=== PATIENT | male | born 1970 | race Caucasian/White ===

== ENCOUNTER → 2016-05-09 | Outpatient (REF) | payer OTHER ==
[2016-05-09 12:23] LABS: ALBUMIN 3.7 GM/DL (3.2-5.2); ALBUMIN/GLOBULIN RATIO 1.32 (1.00-1.93); ALKALINE PHOSPHATASE 88 U/L (45-117); ALT/SGPT 40 U/L (12-78); ANION GAP 8 MEQ/L (8-16); AST/SGOT 21 U/L (15-37); BILIRUBIN,TOTAL 0.5 MG/DL (0.2-1.0); BLOOD UREA NITROGEN 23 MG/DL (7-18); CARBON DIOXIDE LEVEL 27 MEQ/L (21-32); CHLORIDE LEVEL 108 MEQ/L (98-107); CHOLESTEROL LEVEL 215 MG/DL (<200); CREATININE FOR GFR 0.82 MG/DL (0.70-1.30); FREE T4 1.15 NG/DL (0.76-1.46); GLOMERULAR FILTRATION RATE > 60.0 (>60); GLUCOSE, FASTING 103 MG/DL (70-105); POTASSIUM SERUM 4.5 MEQ/L (3.5-5.1); SODIUM LEVEL 143 MEQ/L (136-145); TOTAL PROTEIN 6.5 GM/DL (6.4-8.2); TRIGLYCERIDES LEVEL 111 MG/DL (<150)
== END ==
LOC: M LABDRAW1 11:27
PROVIDERS: ATTEND Family Medicine
DX: E03.9 Hypothyroidism, unspecified (principal); E78.2 Mixed hyperlipidemia

== ENCOUNTER → 2016-05-09 | Outpatient (REF) | payer OTHER ==
[2016-05-09 12:08] LABS: MEAN CORPUSCULAR HEMOGLOBIN 32.1 pg (27.0-33.0); MEAN CORPUSCULAR HGB CONC 35.2 g/dl (32.0-36.5); MEAN CORPUSCULAR VOLUME 91.1 fl (80.0-96.0); RED CELL DISTRIBUTION WIDTH 12.1 % (11.5-14.5); WHITE BLOOD COUNT 6.6 K/mm3 (4.0-10.0)
[2016-05-09 12:10] LABS: ALBUMIN 3.7 GM/DL (3.2-5.2); ALBUMIN/GLOBULIN RATIO 1.28 (1.00-1.93); ALKALINE PHOSPHATASE 84 U/L (45-117); ALT/SGPT 39 U/L (12-78); ANION GAP 9 MEQ/L (8-16); AST/SGOT 21 U/L (15-37); BILIRUBIN,DIRECT 0.1 MG/DL (0.0-0.2); BILIRUBIN,TOTAL 0.5 MG/DL (0.2-1.0); BLOOD UREA NITROGEN 22 MG/DL (7-18); CALCIUM LEVEL 8.8 MG/DL (8.5-10.1); CARBON DIOXIDE LEVEL 26 MEQ/L (21-32); CHLORIDE LEVEL 106 MEQ/L (98-107); CREATININE FOR GFR 0.78 MG/DL (0.70-1.30); GLOMERULAR FILTRATION RATE > 60.0 (>60); GLUCOSE, FASTING 98 MG/DL (70-105); PHOSPHORUS LEVEL 2.7 MG/DL (2.5-4.9); POTASSIUM SERUM 4.4 MEQ/L (3.5-5.1); SODIUM LEVEL 141 MEQ/L (136-145); TOTAL PROTEIN 6.6 GM/DL (6.4-8.2)
== END ==
LOC: M LABDRAW1 11:29
PROVIDERS: ATTEND Podiatrist Foot & Ankle Surgery
DX: Z51.81 Encounter for therapeutic drug level monitoring (principal); Z79.899 Other long term (current) drug therapy; B35.1 Tinea unguium

== ENCOUNTER 2016-05-25 12:51 | Day surgery (SDC) | payer OTHER ==
[~2016-05-25] VITALS: Ht 185.4 cm; Wt 97.5 kg
--- NOTE | 2016-05-25 14:33 | REP ---
Left elbow series: Four views. History: Injury. Findings: There is an intra-articular fracture of the olecranon process of the proximal ulna. There is up to 6 mm of diastasis at the fracture site on lateral radiograph. No other fracture is seen. There is associated soft-tissue swelling. There is coronoid process and olecranon process spurring. 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 Impression: Intra-articular fracture of the proximal ulna involving the base of the olecranon process. Signed by Nomi Lobo MD 05/25/2016 03:06 P
[2016-05-25] MEDS ORDERED: ONDANSETRON 4MG/2ML VIAL (J2405) As Ordered ONE ×2 (14:36→22:00)
[2016-05-25] MEDS ORDERED: MORPHINE 4 MG/ML 1ML SYRINGE As Ordered ONE (14:36)
--- NOTE | 2016-05-25 14:37 | REP ---
LEFT SHOULDER SERIES: Three views. HISTORY: Trauma. FINDINGS: Glenohumeral and acromioclavicular joints are normally aligned. Periarticular soft tissues are unremarkable. There is a granulomatous calcification in the left lung. IMPRESSION: No traumatic abnormality noted. Signed by Nomi Lobo MD 05/25/2016 03:07 P
[2016-05-25 14:46] LABS: BASO % 0.2 % (0.0-1.0); EOS # 0.1 K/mm3 (0.0-0.50); EOS % 0.8 % (0.0-3.0); LARGE UNSTAINED CELL # 0.1 K/mm3 (0.0-0.4); LARGE UNSTAINED CELL % 0.7 % (0.0-4.0); LYMPH # 0.8 K/mm3 (1.5-4.5); LYMPH % 5.5 % (24.0-44.0); MEAN CORPUSCULAR HEMOGLOBIN 30.8 pg (27.0-33.0); MEAN CORPUSCULAR HGB CONC 33.2 g/dl (32.0-36.5); MEAN CORPUSCULAR VOLUME 92.9 fl (80.0-96.0); MONO # 0.4 K/mm3 (0.0-0.8); MONO % 2.8 % (0.0-5.0); NEUTROPHILS # 12.3 K/mm3 (1.8-7.7); NEUTROPHILS % 89.9 % (36.0-66.0); PLATELET COUNT, AUTOMATED 182 k/mm3 (150-450); RED CELL DISTRIBUTION WIDTH 12.2 % (11.5-14.5); WHITE BLOOD COUNT 13.6 K/mm3 (4.0-10.0)
[2016-05-25] MEDS ORDERED: ROPIvacaine 0.5% 30 ML INJECTION (J2795) ONE (14:51)
[2016-05-25] MEDS ORDERED: dexameTHASONE 10 MG/1 ML VIAL PRES.FREE (J1100) ONE (14:51)
[2016-05-25 14:59] LABS: INR 0.97
[2016-05-25 15:07] LABS: ALBUMIN/GLOBULIN RATIO 1.43 (1.00-1.93); ALKALINE PHOSPHATASE 89 U/L (45-117); ALT/SGPT 40 U/L (12-78); ANION GAP 6 MEQ/L (8-16); AST/SGOT 21 U/L (15-37); BILIRUBIN,TOTAL 0.4 MG/DL (0.2-1.0); BLOOD UREA NITROGEN 27 MG/DL (7-18); CALCIUM LEVEL 9.2 MG/DL (8.5-10.1); CARBON DIOXIDE LEVEL 30 MEQ/L (21-32); CHLORIDE LEVEL 107 MEQ/L (98-107); CREATININE FOR GFR 1.08 MG/DL (0.70-1.30); GLOMERULAR FILTRATION RATE > 60.0 (>60); GLUCOSE, FASTING 80 MG/DL (70-105); POTASSIUM SERUM 4.2 MEQ/L (3.5-5.1); SODIUM LEVEL 143 MEQ/L (136-145); TOTAL PROTEIN 6.8 GM/DL (6.4-8.2)
[2016-05-25] MEDS ORDERED: FLUO40CA PO (15:15)
[2016-05-25] MEDS ORDERED: LYSI500C PO (15:15)
[2016-05-25] MEDS ORDERED: SYNT137T7 PO (15:15)
[2016-05-25] MEDS ORDERED: ZYLO300T4 PO (15:15)
[2016-05-25] MEDS ORDERED: DICL75TA PO (15:15)
[2016-05-25] MEDS ORDERED: ceFAZolin 1GM INJ (J0690) As Ordered ONE (15:17)
--- NOTE | 2016-05-25 16:46 | EDDOCDS ---
Nurse's Notes [facility] Name: Sergio Loza Age: 46 yrs Sex: Male : 1970 Arrival Date: 05/25/2016 Time: 12:51 Bed I7 / 29 Private MD: Marybel Guerrero A Diagnosis: Nondisplaced fracture of olecranon process with intraarticular extension of left ulna Presentation: 05/25 13:01 Presenting complaint: Patient states: Fell off ladder in garage and landed on left jo3 elbow. Adult Sepsis Screening: The patient does not have new or worsening altered mentation. Patient's respiratory rate is less than 22. Systolic blood pressure is greater than 100. Patient has a qSOFA score of 0- Negative Sepsis Screen. Suicide/Homicide risk assessment- the patient denies having any suicidal and/or homicidal ideations and does not present with any other emotional, behavioral or mental health complaints. Status: Patient is not a school services officer or dependent. Transition of care: patient was not received from another setting of care. 13:01 Acuity: ANATOLIY Level 4 jo3 13:01 Method Of Arrival: Walkin/Carried/Asstd jo3 Triage Assessment: 13:04 General: Appears in no apparent distress, comfortable, Behavior is appropriate for age, jo3 cooperative. Pain: Pain currently is 9 out of 10 on a pain scale. Pt Declines HIV testing. Neurological: Level of Consciousness is awake, alert, Oriented to person, place, time. Respiratory: Airway is patent Respiratory effort is even, unlabored. Historical: - Allergies: PENICILLINS; - Home Meds: 1. allopurinol 300 mg Oral tab 1 tab once daily 2. fluoxetine 40 mg Oral cap 1 cap once daily 3. Synthroid 137 mcg Oral tab 1 tab once daily 4. diclofenac sodium 75 mg oral TbEC 2 times per day - PMHx: gout; Depression; Anxiety; Hypothyroidism; - PSHx: Shoulder Arthroplasty. Right; Tonsillectomy; Hernia repair; - Social history: Smoking status: Patient states was never smoker of tobacco. No barriers to communication noted, The patient speaks fluent Israeli, Speaks appropriately for age. - Family history: Not pertinent. - : The pt / caregiver states he / she is not on anticoagulants. Home medication list is obtained from the patient. - Exposure Risk Screening:: None identified. Screenin:45 Screening information is obtained from the patient. Fall risk: No risks identified. mk4 Assistance ADL's: requires no assistance with activities of daily living. Abuse/DV Screen: The patient / caregiver reports he/she is: not in a situation that causes fear, pain or injury. Nutritional screening: No deficits noted. Advance Directives: Currently, there is no health care proxy. There is no active DNR order. There is no living will. There is no Power of Local Flatbed Driver. Advance directive information has not previously been placed in an [facility] medical record. Further advance directive information is declined. home support is adequate. Assessment: 13:45 General: Appears Behavior is cooperative. Pain: Location: left elbow. Respiratory: mk4 Airway is patent Respiratory effort is even, unlabored, Respiratory pattern is regular. 14:13 General: Appears uncomfortable. Pain: Location: left elbow. Musculoskeletal: mk4 Circulation, motion, and sensation intact Capillary refill < 3 seconds in left fingers. 14:57 General: Appears in no apparent distress, Behavior is cooperative, dr bruce in mk4 examining pt. 16:39 General: Appears in no apparent distress. Pain: Location: left elbow Pain currently is mk4 6 out of 10 on a pain scale. Respiratory: Airway is patent Respiratory effort is even, unlabored, Respiratory pattern is regular. Vital Signs: 12:53 BP 107 / 65 RA Sitting (auto/reg); Pulse 50; Resp 18; Temp 97.9; Pulse Ox 100% ; Weight jrd 97.52 kg (R); Height 6 ft. 1 in. (185.42 cm); Pain 8/10; 15:00 BP 122 / 78; Pulse 66; Resp 18; Temp 97.5(O); Pulse Ox 99% on R/A; mk4 16:35 BP 132 / 74; Pulse 67; Resp 20; Temp 99.0(TE); Pulse Ox 97% on R/A; Pain 6/10; jml1 12:53 Body Mass Index 28.37 (97.52 kg, 185.42 cm) [facility] Vitals: 12:53 Log In Time: May 25, 2016 at 12:40. d ED Course: 12:52 Patient visited by Robby Burr PCA. jrd 12:52 Marybel Guerrero is Private Physician. jrd 12:52 Patient moved to Waiting jrd 12:54 Patient visited by Robby Burr PCA. jrd 13:01 Patient moved to Pre RCE jrd 13:02 Triage Initiated jo3 13:05 Patient visited by Jackelyn Cavazos RN. jo3 13:19 Patient moved to Triage 1 jo3 13:22 Noah Davis PA is PHCP. btw 13:22 Danica Carey MD is Attending Physician. btw 13:22 Patient visited by Noah Davis PA. btw 13:45 Patient moved to I7 btw 13:45 The patient / caregiver is instructed regarding the plan of care and ED course. mk4 14:12 Patient visited by Noemí Ponce RN. mk4 14:35 CBC with Diff Sent. mk4 14:35 Pt & Aptt Sent. mk4 14:35 Complete Comphrensive Metabolic Sent. mk4 14:46 Patient visited by Noemí Ponce RN. mk4 14:48 Tommy Bruce is Hospitalizing Provider. btw 14:56 Elbow, Complete Returned. EDMS 14:56 Shoulder, Complete Returned. EDMS 15:24 Admission Orders was scanned into [employer] and attached to record. deg 15:46 Elbow, Complete Returned. EDMS 15:46 Shoulder, Complete Returned. EDMS 16:23 [facility] Payment Agreement was scanned into [employer] and attached to record. gjb 16:36 Patient visited by Sudarshan Arizmendi. jml1 16:40 Inserted saline lock: 18 gauge in right antecubital area. No procedures done that mk4 require assistance. Administered Medications: 14:46 Drug: NS 0.9% 1000 ml [sodium chloride 0.9 % intravenous solution] Route: IV; Rate: 150 mk4 mL/hr; Site: right antecubital; 14:47 Drug: morphine 4 mg [morphine 4 mg/mL intravenous cartridge (1 mL)] Route: IVP; Site: mk4 right antecubital; 15:00 Follow up: Response: Pain is decreased mk4 14:47 Drug: Ondansetron 4 mg Route: IVP; Site: right antecubital; mk4 Order Results: Lab Order: CBC with Diff; SPEC'M 05/25/16 14:35 Test: WHITE BLOOD COUNT; Value: 13.6; Range: 4.0-10.0; Abnormal: Above high normal; Units: K/mm3; Status: F Test: RED BLOOD COUNT; Value: 4.98; Range: 4.30-6.10; Units: M/mm3; Status: F Test: HEMOGLOBIN; Value: 15.3; Range: 14.0-18.0; Units: g/dl; Status: F Test: HEMATOCRIT; Value: 46.2; Range: 42.0-52.0; Units: %; Status: F Test: MEAN CORPUSCULAR VOLUME; Value: 92.9; Range: 80.0-96.0; Units: fl; Status: F Test: MEAN CORPUSCULAR HEMOGLOBIN; Value: 30.8; Range: 27.0-33.0; Units: pg; Status: F Test: MEAN CORPUSCULAR HGB CONC; Value: 33.2; Range: 32.0-36.5; Units: g/dl; Status: F Test: RED CELL DISTRIBUTION WIDTH; Value: 12.2; Range: 11.5-14.5; Units: %; Status: F Test: PLATELET COUNT, AUTOMATED; Value: 182; Range: 150-450; Units: k/mm3; Status: F Test: NEUTROPHILS %; Value: 89.9; Range: 36.0-66.0; Abnormal: Above high normal; Units: %; Status: F Test: LYMPH %; Value: 5.5; Range: 24.0-44.0; Abnormal: Below low normal; Units: %; Status: F Test: MONO %; Value: 2.8; Range: 0.0-5.0; Units: %; Status: F Test: EOS %; Value: 0.8; Range: 0.0-3.0; Units: %; Status: F Test: BASO %; Value: 0.2; Range: 0.0-1.0; Units: %; Status: F Test: LARGE UNSTAINED CELL %; Value: 0.7; Range: 0.0-4.0; Units: %; Status: F Test: NEUTROPHILS #; Value: 12.3; Range: 1.8-7.7; Abnormal: Above high normal; Units: K/mm3; Status: F Test: LYMPH #; Value: 0.8; Range: 1.5-4.5; Abnormal: Below low normal; Units: K/mm3; Status: F Test: MONO #; Value: 0.4; Range: 0.0-0.8; Units: K/mm3; Status: F Test: EOS #; Value: 0.1; Range: 0.0-0.50; Units: K/mm3; Status: F Test: BASO #; Value: 0.0; Range: 0.0-0.2; Units: K/mm3; Status: F Test: LARGE UNSTAINED CELL #; Value: 0.1; Range: 0.0-0.4; Units: K/mm3; Status: F Lab Order: Pt & Aptt; [facility]16 14:35 Test: PROTHROMBIN TIME; Value: 13.0; Range: 12.3-14.5; Units: SECONDS; Status: F Test: INR; Value: 0.97; Status: F Test: PARTIAL THROMBOPLASTIN TIME; Value: 23.0; Range: 26.6-37.1; Abnormal: Below low normal; Units: SECONDS; Status: F Test Note: ; THERAPUTIC HUMAN INR VALUES INDICATIONS NORMAL RANGES PROPHYLAXIS/TREATMENT OF: VENOUS THROMBOSIS 2.0-3.0 PULMONARY EMBOLISM 2.0-3.0 PREVENTION OF SYSTEMIC EMBOLISM FROM: TISSUE HEART VALVES 2.0-3.0 ACUTE MYOCARDIAL INFARCTION 2.0-3.0 VALVULAR HEART DISEASE 2.0-3.0 ATRIAL FIBRILLATION 2.0-3.0 MECHANICAL VALVES(HIGH RISK) 2.5-3.5 RECURRENT MYOCARDIAL INFARCTION 2.5-3.5 Lab Order: Complete Comphrensive Metabolic; 05/25/16 14:35 Test: GLUCOSE, FASTING; Value: 80; Range: 70-105; Units: MG/DL; Status: F Test: BLOOD UREA NITROGEN; Value: 27; Range: 7-18; Abnormal: Above high normal; Units: MG/DL; Status: F Test: CREATININE FOR GFR; Value: 1.08; Range: 0.70-1.30; Units: MG/DL; Status: F Test: GLOMERULAR FILTRATION RATE; Value: > 60.0; Range: >60; Status: F Test: SODIUM LEVEL; Value: 143; Range: 136-145; Units: MEQ/L; Status: F Test: POTASSIUM SERUM; Value: 4.2; Range: 3.5-5.1; Units: MEQ/L; Status: F Test: CHLORIDE LEVEL; Value: 107; Range: 98-107; Units: MEQ/L; Status: F Test: CARBON DIOXIDE LEVEL; Value: 30; Range: 21-32; Units: MEQ/L; Status: F Test: ANION GAP; Value: 6; Range: 8-16; Abnormal: Below low normal; Units: MEQ/L; Status: F Test: CALCIUM LEVEL; Value: 9.2; Range: 8.5-10.1; Units: MG/DL; Status: F Test: AST/SGOT; Value: 21; Range: 15-37; Units: U/L; Status: F Test: ALT/SGPT; Value: 40; Range: 12-78; Units: U/L; Status: F Test: ALKALINE PHOSPHATASE; Value: 89; Range: 45-117; Units: U/L; Status: F Test: BILIRUBIN,TOTAL; Value: 0.4; Range: 0.2-1.0; Units: MG/DL; Status: F Test: TOTAL PROTEIN; Value: 6.8; Range: 6.4-8.2; Units: GM/DL; Status: F Test: ALBUMIN; Value: 4.0; Range: 3.2-5.2; Units: GM/DL; Status: F Test: ALBUMIN/GLOBULIN RATIO; Value: 1.43; Range: 1.00-1.93; Status: F Test Note: ; Units are mL/min/1.73 m2 Chronic Kidney Disease Staging per NKF: Stage I & II GFR >=60 Normal to Mildly Decreased Stage III GFR 30-59 Moderately Decreased Stage IV GFR 15-29 Severely Decreased Stage V GFR <15 Very Little GFR Left ESRD GFR <15 on CLINICAL VETERINARIAN Radiology Order: Elbow, Complete Test: Elbow, Complete REASON FOR EXAMINATION: Trauma; Left elbow series: Four views.; ; History: Injury.; ; Findings: There is an intra-articular fracture of the olecranon process of the; proximal ulna. There is up to 6 mm of diastasis at the fracture site on lateral; radiograph. No other fracture is seen. There is associated soft-tissue; swelling. There is coronoid process and olecranon process spurring. 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 There is a granulomatous; calcification in the left lung.; ; IMPRESSION: No traumatic abnormality noted.; ; ; Signed by; Nomi Lobo MD 05/25/2016 03:07 P; Outcome: 14:48 Decision to Hospitalize by Provider. btw 16:39 Discharge Assessment: Patient awake, alert and oriented x 3. No cognitive and/or mk4 functional deficits noted. Patient verbalized understanding of disposition instructions. Discharge Assessment: patient administered narcotics - yes. Patient was admitted to the hospital or transferred to another facility. Admitted to OR accompanied by nurse, via stretcher, with chart. The following High Risk Discharge criteria are identified: None. Admitted. Condition: stable. No special radiology studies were completed. Property :Personal belongings accompany Pt. 16:45 Patient left the ED. [facility] Signatures: Dispatcher [employer] EDMS Kirti Thomas, Ager Tender Unit deg Ann Wright RN RN mcp Helmerci, JenniferRN RN Noah Kaiser PA PA btw Sudarshan Arizmendi Margaret, RN RN laurel4 Robby Burr, Leandra Villagran Corrections: (The following items were deleted from the chart) 14:15 14:13 General: Appears uncomfortable, cindy white [facility]
--- NOTE | 2016-05-25 16:46 | EDDOCDS ---
Physician Documentation [facility] Name: Sergio Loza Age: 46 yrs Sex: Male : 1970 Arrival Date: 05/25/2016 Time: 12:51 Bed I7 / 29 Private MD: Marybel Guerrero A Disposition: 05/25/16 14:48 Hospitalization ordered by Tommy Burce for Inpatient Admission. Preliminary diagnosis is Nondisplaced fracture of olecranon process with intraarticular extension of left ulna. - Bed requested for 5 Soni. - Status is Inpatient Admission. mcp - Condition is Stable. - Problem is new. - Symptoms are unchanged. Historical: - Allergies: PENICILLINS; - Home Meds: 1. allopurinol 300 mg Oral tab 1 tab once daily 2. fluoxetine 40 mg Oral cap 1 cap once daily 3. Synthroid 137 mcg Oral tab 1 tab once daily 4. diclofenac sodium 75 mg oral TbEC 2 times per day - PMHx: gout; Depression; Anxiety; Hypothyroidism; - PSHx: Shoulder Arthroplasty. Right; Tonsillectomy; Hernia repair; - Social history: Smoking status: Patient states was never smoker of tobacco. No barriers to communication noted, The patient speaks fluent Turkmen, Speaks appropriately for age. - Family history: Not pertinent. - : The pt / caregiver states he / she is not on anticoagulants. Home medication list is obtained from the patient. - Exposure Risk Screening:: None identified. Vital Signs: 05/25 12:53 BP 107 / 65 RA Sitting (auto/reg); Pulse 50; Resp 18; Temp 97.9; Pulse Ox 100% ; Weight jrd 97.52 kg / 214.99 lbs (R); Height 6 ft. 1 in. (185.42 cm); Pain 8/10; 15:00 BP 122 / 78; Pulse 66; Resp 18; Temp 97.5(O); Pulse Ox 99% on R/A; mk4 16:35 BP 132 / 74; Pulse 67; Resp 20; Temp 99.0(TE); Pulse Ox 97% on R/A; Pain 6/10; jml1 12:53 Body Mass Index 28.37 (97.52 kg, 185.42 cm) jrd MDM: 13:45 Elbow, Complete Ordered. EDMS 13:45 Shoulder, Complete Ordered. EDMS 14:25 IV Saline Lock ordered. btw 14:25 morphine 4 mg IVP every 30 minutes; Document pain score/vitals after each dose (Hold if btw SBP < 90mmHg) x2 ordered. 14:25 Ondansetron 4 mg IVP once ordered. btw 14:26 CBC with Diff Ordered. EDMS 14:26 Pt & Aptt Ordered. EDMS 14:26 Complete Comphrensive Metabolic Ordered. EDMS 14:26 NS 0.9% 1000 ml IV at 150 mL/hr continuous ordered. btw 14:48 CBC with Diff Reviewed. btw 14:49 BED REQUEST+ADM ordered. EDMS 15:16 Pt & Aptt Reviewed. btw 15:16 Complete Comphrensive Metabolic Reviewed. btw 15:16 Elbow, Complete Reviewed. btw 15:16 Shoulder, Complete Reviewed. btw 15:24 Admission Orders was scanned into [employer] and attached to record. deg 16:23 Financial registration complete. gjb 16:23 [facility] Payment Agreement was scanned into [employer] and attached to record. gjb Administered Medications: 14:46 Drug: NS 0.9% 1000 ml [sodium chloride 0.9 % intravenous solution] Route: IV; Rate: 150 mk4 mL/hr; Site: right antecubital; 14:47 Drug: morphine 4 mg [morphine 4 mg/mL intravenous cartridge (1 mL)] Route: IVP; Site: mk4 right antecubital; 15:00 Follow up: Response: Pain is decreased mk4 14:47 Drug: Ondansetron 4 mg Route: IVP; Site: right antecubital; mk4 Signatures: Dispatcher [employer] EDMS Kirti Thomas, Job Recruiter Unit deg Ann Wright RN Jackelyn Jung mcp, RN RN jo3 Wolfenden, Brandon, PA PA btw Noemí Ponce RN RN laurel4 Alen Castano RN Leandra Sanchez mts The chart was reviewed and I authenticate all verbal orders and agree with the evaluation and treatment provided.Attachments: 15:24 Admission Orders deg 16:23 [facility] Payment Agreement gjb MTDD
[2016-05-25] MEDS ORDERED: ceFAZolin 2 GM/D5W 50 ML IV BAG (J0690) As Ordered ONE (16:58)
[2016-05-25] MEDS ORDERED: ceFAZolin 1GM INJ (J0690) IR ONE (18:55)
--- NOTE | 2016-05-25 20:04 | HPE ---
DATE OF ADMISSION: 05/25/2016 REASON FOR ADMISSION: Left olecranon fracture. 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 He was on about the third rung of a stepladder, fell backwards, landed on his left elbow. Complains of soreness predominantly of the left elbow. Was seen by the emergency room staff and x-rays of the shoulder and elbow were done, demonstrating olecranon fracture on the left. I was called in to see him for this injury. He does not complain of any other injury other than pain and soreness of the left elbow. No associated numbness or tingling. With this, no loss of consciousness, neck pain or head pain. He was ambulatory. PAST MEDICAL HISTORY: His past medical history is well known to me, orthopedically from multiple surgeries on his right shoulder. Otherwise, he has a history of hypothyroidism and gout and depression. MEDICATIONS: - allopurinol - fluoxetine - Synthroid - diclofenac ALLERGIES: PENICILLIN, but he can take Keflex. SOCIAL HISTORY: He does not smoke. He does not drink alcohol excessively. PAST SURGICAL HISTORY 1. Right shoulder rotator cuff repair times two. 2. Right tonsillectomy. 3. Hernia repair. SOCIAL HISTORY: He is and here with his . REVIEW OF SYSTEMS: Health survey is otherwise unremarkable. PHYSICAL EXAMINATION: Alert and oriented male. He is lying on a stretcher with a sling on his left upper extremity. His blood pressure was 107/65, pulse 50, respirations 18, temperature 97.9, oxygen saturation is 100% on room air. He is 6 feet 1 inch and weighs 97.5 kg, giving him a Body Mass Index (BMI) of 28.37. HEENT: Examination is benign. Normocephalic, atraumatic. Extraocular muscles grossly normal. EXTREMITIES: Left shoulder had some mild diffuse soreness, but his left elbow some tender and swelling over the posterior aspect of the proximal ulna with some bruising of the skin but there is no bleeding. Distally, he can flex and extend his left hand, all of his fingers and extend them all normally with normal motor strength and normal sensation to light touch. Good capillary refill. Palpable radial pulse. LUNGS: Clear to auscultation. HEART: Regular. I do not detect a murmur. EXTREMITIES: He has no other traumatic findings seen of his lower extremities or his opposite right upper extremity. White count was 13.6 with hematocrit of 46.2 and platelets of 182. PT 13, INR 0.97. Radiograph of the left shoulder showed no acute fractures. Left elbow showed an intraarticular fairly distal olecranon fracture that extends into the joint some moderate displacement. 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 I talked about and showed him the x-ray on a printout sheet. We discussed the intraarticular nature of the fracture and there is some displacement at the joint. I would recommend for him to get this reduced as anatomically as possible and that will require, unfortunately, surgery, and try to get an open reduction and plated. I do not think that this is a tension band type fracture, but plating would probably be better, but there is a risk of doing surgery. There is a risk of infection, damage to nerves and blood vessels, anesthetic complications amongst others, and he understands that there is a risk but would like to proceed and I think it reasonable as well. I called anesthesia. He had an orange around 11:00 or 11:30. They will not let us do surgery until sometime after 5:00 o'clock this afternoon, and so we will try to get him done around that time.
[2016-05-25] MEDS ORDERED: ePHEDrine SULFATE 25 MG/5 ML(5MG/ML) SYRINGE As Ordered ONE (20:37)
[2016-05-25] MEDS ORDERED: fentaNYL 250 MCG/5 ML INJECTION (J3010) As Ordered ONE (20:37)
[2016-05-25] MEDS ORDERED: dexameTHASONE 4 MG/ML 1ML VIAL (J1100) As Ordered ONE (20:37)
[2016-05-25] MEDS ORDERED: GLYCOPYRROLATE INJ 0.2 MG/ML 2 ML VIAL As Ordered ONE (20:37)
[2016-05-25] MEDS ORDERED: HYDROmorphone HCL 2 MG/ML 1ML VIAL (J1170) As Ordered ONE (20:37)
[2016-05-25] MEDS ORDERED: ONDANSETRON 4MG/2ML VIAL (J2405) IV PRN (21:15)
[2016-05-25] MEDS ORDERED: NORCO, ANEXSIA 5/325MG TABLET (HYDROcodone/ACETAMINOPHEN) PO PRN (21:15)
[2016-05-25] MEDS ORDERED: LR 1,000 ML IV SCH (21:15)
[2016-05-25] MEDS ORDERED: fentaNYL 100 MCG/2 ML INJECTION (J3010) IV PRN (21:15)
[2016-05-25] MEDS ORDERED: MORPHINE 4 MG/ML 1ML SYRINGE IV PRN (21:15)
[2016-05-25] MEDS ORDERED: MIDAZOLAM INJ 2 MG/2 ML VIAL (J2250) As Ordered ONE (22:00)
[2016-05-25] MEDS: NORCO, ANEXSIA 5/325MG TABLET (HYDROcodone/ACETAMINOPHEN) PO PRN (22:46)
[2016-05-25] MEDS: LR 1,000 ML IV SCH (22:46)
[2016-05-25 23:30] VITALS: BP 125/73
[2016-05-26 00:30] VITALS: BP 119/71
[2016-05-26 01:30] VITALS: BP 129/74
[2016-05-26 02:30] VITALS: BP 122/71
--- NOTE | 2016-05-26 05:00 | REP ---
Clinical: Comminuted fracture to the elbow. Technique: Intraoperative fluoroscopic imaging. Findings: Two intraoperative fluoroscopic images demonstrate the patient to be status post open reduction and fixation for comminuted fractures involving the proximal ulna. Satisfactory alignment and reduction. Total fluoroscopic time 40 seconds. Impression: Status post open reduction and fixation for comminuted proximal ulnar fracture. Signed by Gurpreet Mckeon MD 05/26/2016 04:52 A
[2016-05-26] MEDS: NORCO, ANEXSIA 5/325MG TABLET (HYDROcodone/ACETAMINOPHEN) PO PRN ×2 (05:56→10:03)
[2016-05-26 06:00] VITALS: BP 140/76
[2016-05-26] MEDS ORDERED: LEVOTHYROXINE 0.137 MG TAB (137MCG) PO SCH (06:00)
--- NOTE | 2016-05-26 06:33 | RO ---
DATE OF PROCEDURE: 05/25/2016 PREPROCEDURE DIAGNOSIS: Left olecranon fracture. POSTPROCEDURE DIAGNOSIS: Left olecranon fracture. PROCEDURE: Open reduction internal fixation with 3.5 LCP Synthes locking olecranon plate with interfragmentary screw with a cannulated 4.5 mm lag screw. SURGEON: Dr. Soledad Bruce STEAM PLANT OPERATOR: ANESTHESIA: General endotracheal tube anesthesia. COMPLICATIONS: None. ESTIMATED BLOOD LOSS: 100 mL. PROCEDURE: Antibiotics were given intravenously preoperatively and then a successful general endotracheal tube anesthetic was established. He was then placed in the lateral decubitus position on a grant bag and his left arm draped over a metal bolster. Tourniquet was placed on the left upper arm, not inflated. Then prior to prepping and draping, fluoroscopic imaging confirmed that we could get good imaging and then his left upper extremity was prepped and draped in the usual sterile fashion and then after appropriate time out, his arm was elevated and the tourniquet was inflated for 45 minutes. A longitudinal incision was made on the dorsal surface of the left elbow. Bovie cautery used to coagulate down through the soft tissues to the deep tissues down to the ulna bone exposing the underlying fascia site. It was actually quite comminuted. The major fracture fragment was easily identifiable but the proximal fracture fragment also had longitudinal splitting making it somewhat comminuted. Thus, I was able to subperiosteally dissect around the main fracture line to make sure that we could get good anatomic reduction after irrigating out this area. It appeared to be we were anatomically aligned on the dorsal and medial and lateral surfaces. I did not take the fracture apart to do so. I then used a 4 hole, 3.5 LCP olecranon locking plate from the Synthes elbow tray and applied it to the bone and then contoured it proximally with a small bend. I had to eliminate the proximal tab. I provisionally fixed it with two K-wires, one proximally and one distally and under fluoroscopic imaging showed that we could get adequate positioning of the plate but I wanted to get a lag screw across the main fracture fragment first to reduce the fracture as best as possible. Thus the one K-wire proximally used to hold the plate actually was well aligned in the directed of the needed lag screw but there was no holes available through the plate in order to lag through the plate. Thus I had to go just off to the medial edge of the plate and the 4.0 screws were not long enough so I used the 4.5 cannulated screw set and I tried to stay parallel to the previously placed K-wire that was holding the plate. I passed a threaded guide pin across the fracture site and then confirmed positioning on the AP and lateral fluoroscopic imaging in multiple sequences until I got the pin into good position and good length. I then counter sank the near cortex, then used a 56 mm proximally threaded 4.5 cannulated screw to go across that K-wire across the fracture site with excellent firm bite of the screw. I tightened it as much as I possibly could and it did bring the fracture together as best as possible. There was still a bit of a gap right at the joint surface but I felt it was only about 1-2 mm, there was no step off. I felt that there was an acceptable reduction. At this point then, I contoured the plate appropriately. There was a large amount of tophus material right in the olecranon bursa at the tip of the olecranon which I excised with a rongeur at the triceps insertion point and I did split the triceps a small amount in order to get the plate to rest down very close to the bone so the plate would fit right up against the ulna going distally. Then I secured the plate to the bone through the longitudinal hole with a 3.5 cortical screw more distally and then more proximally I first placed a 3.5 cortical screw through one of the locking screw holes to hold the plate into good position. Fluoroscopic imaging confirmed with good placement of the plate. The fracture was seen to be well reduced and then I filled the remaining distal holes with 3.5 cortical screws then proximally I used two other additional locking screw. I tried to place the one screw in the very distal tip of the plate but it was bent out of plane. It would not align properly. Thus at this point, I felt we had nice rigid fixation. The tourniquet was released actually prior to putting the plate on the bone and then we copiously irrigated the wound out as we did several times throughout the operation and I closed the muscle split over the plate with interrupted #2-0 PDS sutures. Subdermal tissues were closed with interrupted #2-0 PDS sutures, skin was closed with nilam covered Adaptic dry sterile bulky dressing. He was then placed into posterior plaster splint and the back into a sling, then turned supine and then he was awakened from general endotracheal tube anesthesia after having tolerated the procedure well, transferred to the recovery room in stable condition. There were no intraoperative complications.
[2016-05-26] MEDS ORDERED: VICO5TAB16 PO (07:01)
[2016-05-26] MEDS: LR 1,000 ML IV SCH (08:11)
[2016-05-26] MEDS ORDERED: ALLOPURINOL 300 MG TAB PO SCH (09:00)
[2016-05-26] MEDS ORDERED: FLUoxetine 20 MG CAP PO SCH (09:00)
--- NOTE | 2016-05-27 17:46 | EDDOCDS ---
Nurse's Notes [facility] Name: Sergio Loza Age: 46 yrs Sex: Male : 1970 Arrival Date: 05/25/2016 Time: 12:51 Bed I7 / 29 Private MD: Marybel Guerrero A Diagnosis: Nondisplaced fracture of olecranon process with intraarticular extension of left ulna Presentation: 05/25 13:01 Presenting complaint: Patient states: Fell off ladder in garage and landed on left jo3 elbow. Adult Sepsis Screening: The patient does not have new or worsening altered mentation. Patient's respiratory rate is less than 22. Systolic blood pressure is greater than 100. Patient has a qSOFA score of 0- Negative Sepsis Screen. Suicide/Homicide risk assessment- the patient denies having any suicidal and/or homicidal ideations and does not present with any other emotional, behavioral or mental health complaints. Status: Patient is not a account services specialist or dependent. Transition of care: patient was not received from another setting of care. 13:01 Acuity: ANATOLIY Level 4 jo3 13:01 Method Of Arrival: Walkin/Carried/Asstd jo3 Triage Assessment: 13:04 General: Appears in no apparent distress, comfortable, Behavior is appropriate for age, jo3 cooperative. Pain: Pain currently is 9 out of 10 on a pain scale. Pt Declines HIV testing. Neurological: Level of Consciousness is awake, alert, Oriented to person, place, time. Respiratory: Airway is patent Respiratory effort is even, unlabored. Historical: - Allergies: PENICILLINS; - Home Meds: 1. allopurinol 300 mg Oral tab 1 tab once daily 2. fluoxetine 40 mg Oral cap 1 cap once daily 3. Synthroid 137 mcg Oral tab 1 tab once daily 4. diclofenac sodium 75 mg oral TbEC 2 times per day - PMHx: gout; Depression; Anxiety; Hypothyroidism; - PSHx: Shoulder Arthroplasty. Right; Tonsillectomy; Hernia repair; - Social history: Smoking status: Patient states was never smoker of tobacco. No barriers to communication noted, The patient speaks fluent Indian, Speaks appropriately for age. - Family history: Not pertinent. - : The pt / caregiver states he / she is not on anticoagulants. Home medication list is obtained from the patient. - Exposure Risk Screening:: None identified. Screenin:45 Screening information is obtained from the patient. Fall risk: No risks identified. mk4 Assistance ADL's: requires no assistance with activities of daily living. Abuse/DV Screen: The patient / caregiver reports he/she is: not in a situation that causes fear, pain or injury. Nutritional screening: No deficits noted. Advance Directives: Currently, there is no health care proxy. There is no active DNR order. There is no living will. There is no Power of Product Management Manager. Advance directive information has not previously been placed in an [facility] medical record. Further advance directive information is declined. home support is adequate. Assessment: 13:45 General: Appears Behavior is cooperative. Pain: Location: left elbow. Respiratory: mk4 Airway is patent Respiratory effort is even, unlabored, Respiratory pattern is regular. 14:13 General: Appears uncomfortable. Pain: Location: left elbow. Musculoskeletal: mk4 Circulation, motion, and sensation intact Capillary refill < 3 seconds in left fingers. 14:57 General: Appears in no apparent distress, Behavior is cooperative, dr bruce in mk4 examining pt. 16:39 General: Appears in no apparent distress. Pain: Location: left elbow Pain currently is mk4 6 out of 10 on a pain scale. Respiratory: Airway is patent Respiratory effort is even, unlabored, Respiratory pattern is regular. Vital Signs: 12:53 BP 107 / 65 RA Sitting (auto/reg); Pulse 50; Resp 18; Temp 97.9; Pulse Ox 100% ; Weight jrd 97.52 kg (R); Height 6 ft. 1 in. (185.42 cm); Pain 8/10; 15:00 BP 122 / 78; Pulse 66; Resp 18; Temp 97.5(O); Pulse Ox 99% on R/A; mk4 16:35 BP 132 / 74; Pulse 67; Resp 20; Temp 99.0(TE); Pulse Ox 97% on R/A; Pain 6/10; jml1 12:53 Body Mass Index 28.37 (97.52 kg, 185.42 cm) [facility] Vitals: 12:53 Log In Time: May 25, 2016 at 12:40. d ED Course: 12:52 Patient visited by Robby Burr PCA. jrd 12:52 Marybel Guerrero is Private Physician. jrd 12:52 Patient moved to Waiting jrd 12:54 Patient visited by Robby Burr PCA. jrd 13:01 Patient moved to Pre RCE jrd 13:02 Triage Initiated jo3 13:05 Patient visited by Jackelyn Cavazos RN. jo3 13:19 Patient moved to Triage 1 jo3 13:22 Noah Davis PA is PHCP. btw 13:22 Danica Carey MD is Attending Physician. btw 13:22 Patient visited by Noah Davis PA. btw 13:45 Patient moved to I7 / btw 13:45 The patient / caregiver is instructed regarding the plan of care and ED course. mk4 14:12 Patient visited by Noemí Ponce RN. mk4 14:35 CBC with Diff Sent. mk4 14:35 Pt & Aptt Sent. mk4 14:35 Complete Comphrensive Metabolic Sent. mk4 14:46 Patient visited by Noemí Ponce RN. mk4 14:48 Tommy Bruce is Hospitalizing Provider. btw 14:56 Elbow, Complete Returned. EDMS 14:56 Shoulder, Complete Returned. EDMS 15:24 Admission Orders was scanned into [employer] and attached to record. deg 15:46 Elbow, Complete Returned. EDMS 15:46 Shoulder, Complete Returned. EDMS 16:23 [facility] Payment Agreement was scanned into [employer] and attached to record. gjb 16:36 Patient visited by Sudarshan Arizmendi. jml1 16:40 Inserted saline lock: 18 gauge in right antecubital area. No procedures done that mk4 require assistance. 05/26 12:22 T-Sheet-- Draft Copy was scanned into [employer] and attached to record. gb Administered Medications: 05/25 14:46 Drug: NS 0.9% 1000 ml [sodium chloride 0.9 % intravenous solution] Route: IV; Rate: 150 mk4 mL/hr; Site: right antecubital; 14:47 Drug: morphine 4 mg [morphine 4 mg/mL intravenous cartridge (1 mL)] Route: IVP; Site: mk4 right antecubital; 15:00 Follow up: Response: Pain is decreased mk4 14:47 Drug: Ondansetron 4 mg Route: IVP; Site: right antecubital; mk4 Order Results: Lab Order: CBC with Diff; SPEC'M 05/25/16 14:35 Test: WHITE BLOOD COUNT; Value: 13.6; Range: 4.0-10.0; Abnormal: Above high normal; Units: K/mm3; Status: F Test: RED BLOOD COUNT; Value: 4.98; Range: 4.30-6.10; Units: M/mm3; Status: F Test: HEMOGLOBIN; Value: 15.3; Range: 14.0-18.0; Units: g/dl; Status: F Test: HEMATOCRIT; Value: 46.2; Range: 42.0-52.0; Units: %; Status: F Test: MEAN CORPUSCULAR VOLUME; Value: 92.9; Range: 80.0-96.0; Units: fl; Status: F Test: MEAN CORPUSCULAR HEMOGLOBIN; Value: 30.8; Range: 27.0-33.0; Units: pg; Status: F Test: MEAN CORPUSCULAR HGB CONC; Value: 33.2; Range: 32.0-36.5; Units: g/dl; Status: F Test: RED CELL DISTRIBUTION WIDTH; Value: 12.2; Range: 11.5-14.5; Units: %; Status: F Test: PLATELET COUNT, AUTOMATED; Value: 182; Range: 150-450; Units: k/mm3; Status: F Test: NEUTROPHILS %; Value: 89.9; Range: 36.0-66.0; Abnormal: Above high normal; Units: %; Status: F Test: LYMPH %; Value: 5.5; Range: 24.0-44.0; Abnormal: Below low normal; Units: %; Status: F Test: MONO %; Value: 2.8; Range: 0.0-5.0; Units: %; Status: F Test: EOS %; Value: 0.8; Range: 0.0-3.0; Units: %; Status: F Test: BASO %; Value: 0.2; Range: 0.0-1.0; Units: %; Status: F Test: LARGE UNSTAINED CELL %; Value: 0.7; Range: 0.0-4.0; Units: %; Status: F Test: NEUTROPHILS #; Value: 12.3; Range: 1.8-7.7; Abnormal: Above high normal; Units: K/mm3; Status: F Test: LYMPH #; Value: 0.8; Range: 1.5-4.5; Abnormal: Below low normal; Units: K/mm3; Status: F Test: MONO #; Value: 0.4; Range: 0.0-0.8; Units: K/mm3; Status: F Test: EOS #; Value: 0.1; Range: 0.0-0.50; Units: K/mm3; Status: F Test: BASO #; Value: 0.0; Range: 0.0-0.2; Units: K/mm3; Status: F Test: LARGE UNSTAINED CELL #; Value: 0.1; Range: 0.0-0.4; Units: K/mm3; Status: F Lab Order: Pt & Aptt; SPEC' 05/25/16 14:35 Test: PROTHROMBIN TIME; Value: 13.0; Range: 12.3-14.5; Units: SECONDS; Status: F Test: INR; Value: 0.97; Status: F Test: PARTIAL THROMBOPLASTIN TIME; Value: 23.0; Range: 26.6-37.1; Abnormal: Below low normal; Units: SECONDS; Status: F Test Note: ; THERAPUTIC HUMAN INR VALUES INDICATIONS NORMAL RANGES PROPHYLAXIS/TREATMENT OF: VENOUS THROMBOSIS 2.0-3.0 PULMONARY EMBOLISM 2.0-3.0 PREVENTION OF SYSTEMIC EMBOLISM FROM: TISSUE HEART VALVES 2.0-3.0 ACUTE MYOCARDIAL INFARCTION 2.0-3.0 VALVULAR HEART DISEASE 2.0-3.0 ATRIAL FIBRILLATION 2.0-3.0 MECHANICAL VALVES(HIGH RISK) 2.5-3.5 RECURRENT MYOCARDIAL INFARCTION 2.5-3.5 Lab Order: Complete Comphrensive Metabolic; SPEC'M 05/25/16 14:35 Test: GLUCOSE, FASTING; Value: 80; Range: 70-105; Units: MG/DL; Status: F Test: BLOOD UREA NITROGEN; Value: 27; Range: 7-18; Abnormal: Above high normal; Units: MG/DL; Status: F Test: CREATININE FOR GFR; Value: 1.08; Range: 0.70-1.30; Units: MG/DL; Status: F Test: GLOMERULAR FILTRATION RATE; Value: > 60.0; Range: >60; Status: F Test: SODIUM LEVEL; Value: 143; Range: 136-145; Units: MEQ/L; Status: F Test: POTASSIUM SERUM; Value: 4.2; Range: 3.5-5.1; Units: MEQ/L; Status: F Test: CHLORIDE LEVEL; Value: 107; Range: 98-107; Units: MEQ/L; Status: F Test: CARBON DIOXIDE LEVEL; Value: 30; Range: 21-32; Units: MEQ/L; Status: F Test: ANION GAP; Value: 6; Range: 8-16; Abnormal: Below low normal; Units: MEQ/L; Status: F Test: CALCIUM LEVEL; Value: 9.2; Range: 8.5-10.1; Units: MG/DL; Status: F Test: AST/SGOT; Value: 21; Range: 15-37; Units: U/L; Status: F Test: ALT/SGPT; Value: 40; Range: 12-78; Units: U/L; Status: F Test: ALKALINE PHOSPHATASE; Value: 89; Range: 45-117; Units: U/L; Status: F Test: BILIRUBIN,TOTAL; Value: 0.4; Range: 0.2-1.0; Units: MG/DL; Status: F Test: TOTAL PROTEIN; Value: 6.8; Range: 6.4-8.2; Units: GM/DL; Status: F Test: ALBUMIN; Value: 4.0; Range: 3.2-5.2; Units: GM/DL; Status: F Test: ALBUMIN/GLOBULIN RATIO; Value: 1.43; Range: 1.00-1.93; Status: F Test Note: ; Units are mL/min/1.73 m2 Chronic Kidney Disease Staging per NKF: Stage I & II GFR >=60 Normal to Mildly Decreased Stage III GFR 30-59 Moderately Decreased Stage IV GFR 15-29 Severely Decreased Stage V GFR <15 Very Little GFR Left ESRD GFR <15 on CABINET INSTALLER Radiology Order: Elbow, Complete Test: Elbow, Complete REASON FOR EXAMINATION: Trauma; Left elbow series: Four views.; ; History: Injury.; ; Findings: There is an intra-articular fracture of the olecranon process of the; proximal ulna. There is up to 6 mm of diastasis at the fracture site on lateral; radiograph. No other fracture is seen. There is associated soft-tissue; swelling. There is coronoid process and olecranon process spurring. 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 There is a granulomatous; calcification in the left lung.; ; IMPRESSION: No traumatic abnormality noted.; ; ; Signed by; Nomi Lobo MD 05/25/2016 03:07 P; Outcome: 14:48 Decision to Hospitalize by Provider. btw 16:39 Discharge Assessment: Patient awake, alert and oriented x 3. No cognitive and/or mk4 functional deficits noted. Patient verbalized understanding of disposition instructions. Discharge Assessment: patient administered narcotics - yes. Patient was admitted to the hospital or transferred to another facility. Admitted to OR accompanied by nurse, via stretcher, with chart. The following High Risk Discharge criteria are identified: None. Admitted. Condition: stable. No special radiology studies were completed. Property :Personal belongings accompany Pt. 16:45 Patient left the ED. [facility] Signatures: Dispatcher [employer] EDKirti Rosales, Sales And Service Consultant Unit deg Ann Wright RN RN mcp Barnhardt, Gloria, Rafa Reg Jackelyn Borjas RN RN Noah Kaiser PA PA btw Sudarshan Arizmendi Margaret, RN RN Robby Pierre PCA PCA jrd Beck, Gabriela gjb Corrections: (The following items were deleted from the chart) 14:15 14:13 General: Appears uncomfortable, cindy white Chart Complete MTDD
--- NOTE | 2016-05-27 17:46 | EDDOCDS ---
Physician Documentation [facility] Name: Sergio Loza Age: 46 yrs Sex: Male : 1970 Arrival Date: 05/25/2016 Time: 12:51 Bed I7 / 29 Private MD: Marybel Guerrero A Disposition: 05/25/16 14:48 Hospitalization ordered by Tommy Bruce for Inpatient Admission. Preliminary diagnosis is Nondisplaced fracture of olecranon process with intraarticular extension of left ulna. - Bed requested for 5 Soni. - Status is Inpatient Admission. mcp - Condition is Stable. - Problem is new. - Symptoms are unchanged. Historical: - Allergies: PENICILLINS; - Home Meds: 1. allopurinol 300 mg Oral tab 1 tab once daily 2. fluoxetine 40 mg Oral cap 1 cap once daily 3. Synthroid 137 mcg Oral tab 1 tab once daily 4. diclofenac sodium 75 mg oral TbEC 2 times per day - PMHx: gout; Depression; Anxiety; Hypothyroidism; - PSHx: Shoulder Arthroplasty. Right; Tonsillectomy; Hernia repair; - Social history: Smoking status: Patient states was never smoker of tobacco. No barriers to communication noted, The patient speaks fluent Burkinan, Speaks appropriately for age. - Family history: Not pertinent. - : The pt / caregiver states he / she is not on anticoagulants. Home medication list is obtained from the patient. - Exposure Risk Screening:: None identified. Vital Signs: 05/25 12:53 BP 107 / 65 RA Sitting (auto/reg); Pulse 50; Resp 18; Temp 97.9; Pulse Ox 100% ; Weight jrd 97.52 kg / 214.99 lbs (R); Height 6 ft. 1 in. (185.42 cm); Pain 8/10; 15:00 BP 122 / 78; Pulse 66; Resp 18; Temp 97.5(O); Pulse Ox 99% on R/A; mk4 16:35 BP 132 / 74; Pulse 67; Resp 20; Temp 99.0(TE); Pulse Ox 97% on R/A; Pain 6/10; jml1 12:53 Body Mass Index 28.37 (97.52 kg, 185.42 cm) jrd MDM: 13:45 Elbow, Complete Ordered. EDMS 13:45 Shoulder, Complete Ordered. EDMS 14:25 IV Saline Lock ordered. btw 14:25 morphine 4 mg IVP every 30 minutes; Document pain score/vitals after each dose (Hold if btw SBP < 90mmHg) x2 ordered. 14:25 Ondansetron 4 mg IVP once ordered. btw 14:26 CBC with Diff Ordered. EDMS 14:26 Pt & Aptt Ordered. EDMS 14:26 Complete Comphrensive Metabolic Ordered. EDMS 14:26 NS 0.9% 1000 ml IV at 150 mL/hr continuous ordered. btw 14:48 CBC with Diff Reviewed. btw 14:49 BED REQUEST+ADM ordered. EDMS 15:16 Pt & Aptt Reviewed. btw 15:16 Complete Comphrensive Metabolic Reviewed. btw 15:16 Elbow, Complete Reviewed. btw 15:16 Shoulder, Complete Reviewed. btw 15:24 Admission Orders was scanned into [employer] and attached to record. deg 16:23 Financial registration complete. b 16:23 [facility] Payment Agreement was scanned into [employer] and attached to record. [facility] 05/26 12:22 T-Sheet-- Draft Copy was scanned into [employer] and attached to record. gb Administered Medications: 05/25 14:46 Drug: NS 0.9% 1000 ml [sodium chloride 0.9 % intravenous solution] Route: IV; Rate: 150 mk4 mL/hr; Site: right antecubital; 14:47 Drug: morphine 4 mg [morphine 4 mg/mL intravenous cartridge (1 mL)] Route: IVP; Site: mk4 right antecubital; 15:00 Follow up: Response: Pain is decreased mk4 14:47 Drug: Ondansetron 4 mg Route: IVP; Site: right antecubital; mk4 Signatures: Dispatcher [employer] EDMS Kirti Thomas, Pin Inserter Regulator Unit deg Ann Wright RN Barbara Saldaña mcp, Reg Reg gb Jackelyn Cavazos RN RN Noah Kaiser PA PA btw Noemí Ponce RN RN mk4 Alen Castano RN RN mts Beck, Gabriela [facility] The chart was reviewed and I authenticate all verbal orders and agree with the evaluation and treatment provided.Attachments: 15:24 Admission Orders deg 16:23 [facility] Payment Agreement [facility] 05/26 12:22 T-Sheet-- Draft Copy gb Chart Complete MTDD
--- NOTE | 2016-05-27 17:46 | EDDOCDS ---
Physician Documentation [facility] Name: Sergio Loza Age: 46 yrs Sex: Male : 1970 Arrival Date: 05/25/2016 Time: 12:51 Bed I7 / 29 Private MD: Marybel Guerrero A Disposition: 05/25/16 14:48 Hospitalization ordered by Tommy Bruce for Inpatient Admission. Preliminary diagnosis is Nondisplaced fracture of olecranon process with intraarticular extension of left ulna. - Bed requested for 5 Soni. - Status is Inpatient Admission. mcp - Condition is Stable. - Problem is new. - Symptoms are unchanged. Historical: - Allergies: PENICILLINS; - Home Meds: 1. allopurinol 300 mg Oral tab 1 tab once daily 2. fluoxetine 40 mg Oral cap 1 cap once daily 3. Synthroid 137 mcg Oral tab 1 tab once daily 4. diclofenac sodium 75 mg oral TbEC 2 times per day - PMHx: gout; Depression; Anxiety; Hypothyroidism; - PSHx: Shoulder Arthroplasty. Right; Tonsillectomy; Hernia repair; - Social history: Smoking status: Patient states was never smoker of tobacco. No barriers to communication noted, The patient speaks fluent Wallisian, Speaks appropriately for age. - Family history: Not pertinent. - : The pt / caregiver states he / she is not on anticoagulants. Home medication list is obtained from the patient. - Exposure Risk Screening:: None identified. Vital Signs: 05/25 12:53 BP 107 / 65 RA Sitting (auto/reg); Pulse 50; Resp 18; Temp 97.9; Pulse Ox 100% ; Weight jrd 97.52 kg / 214.99 lbs (R); Height 6 ft. 1 in. (185.42 cm); Pain 8/10; 15:00 BP 122 / 78; Pulse 66; Resp 18; Temp 97.5(O); Pulse Ox 99% on R/A; mk4 16:35 BP 132 / 74; Pulse 67; Resp 20; Temp 99.0(TE); Pulse Ox 97% on R/A; Pain 6/10; jml1 12:53 Body Mass Index 28.37 (97.52 kg, 185.42 cm) jrd MDM: 13:45 Elbow, Complete Ordered. EDMS 13:45 Shoulder, Complete Ordered. EDMS 14:25 IV Saline Lock ordered. btw 14:25 morphine 4 mg IVP every 30 minutes; Document pain score/vitals after each dose (Hold if btw SBP < 90mmHg) x2 ordered. 14:25 Ondansetron 4 mg IVP once ordered. btw 14:26 CBC with Diff Ordered. EDMS 14:26 Pt & Aptt Ordered. EDMS 14:26 Complete Comphrensive Metabolic Ordered. EDMS 14:26 NS 0.9% 1000 ml IV at 150 mL/hr continuous ordered. btw 14:48 CBC with Diff Reviewed. btw 14:49 BED REQUEST+ADM ordered. EDMS 15:16 Pt & Aptt Reviewed. btw 15:16 Complete Comphrensive Metabolic Reviewed. btw 15:16 Elbow, Complete Reviewed. btw 15:16 Shoulder, Complete Reviewed. btw 15:24 Admission Orders was scanned into [employer] and attached to record. deg 16:23 Financial registration complete. b 16:23 [facility] Payment Agreement was scanned into [employer] and attached to record. [facility] 05/26 12:22 T-Sheet-- Draft Copy was scanned into [employer] and attached to record. gb Administered Medications: 05/25 14:46 Drug: NS 0.9% 1000 ml [sodium chloride 0.9 % intravenous solution] Route: IV; Rate: 150 mk4 mL/hr; Site: right antecubital; 14:47 Drug: morphine 4 mg [morphine 4 mg/mL intravenous cartridge (1 mL)] Route: IVP; Site: mk4 right antecubital; 15:00 Follow up: Response: Pain is decreased mk4 14:47 Drug: Ondansetron 4 mg Route: IVP; Site: right antecubital; mk4 Signatures: Dispatcher [employer] EDMS Kirti Thomas, Content Director Unit deg Ann Wright RN Barbara Saldaña mcp, Reg Reg gb Jackelyn Cavazos RN RN Noah Kaiser PA PA btw Noemí Ponce RN RN mk4 Alen Castano RN RN mts Beck, Gabriela [facility] The chart was reviewed and I authenticate all verbal orders and agree with the evaluation and treatment provided.Attachments: 15:24 Admission Orders deg 16:23 [facility] Payment Agreement [facility] 05/26 12:22 T-Sheet-- Draft Copy gb Chart Complete MTDD
== END 2016-05-26 10:05 | disposition home or self-care (01) ==
LOC: M ED 12:51 → M SDC 14:50 → M MS5PR 22:07 → M SDC 05-26 10:05
PROVIDERS: ATTEND Orthopaedic Surgery
DX: S52.035A Nondisplaced fracture of olecranon process with intraarticular extension of left ulna, initial encounter for closed fracture (principal); S43.421D Sprain of right rotator cuff capsule, subsequent encounter; W11.XXXA Fall on and from ladder, initial encounter; Y92.098 Other place in other non-institutional residence as the place of occurrence of the external cause; Y93.89 Activity, other specified; Y99.8 Other external cause status; M10.9 Gout, unspecified; F41.9 Anxiety disorder, unspecified; E03.9 Hypothyroidism, unspecified; Z88.0 Allergy status to penicillin; Z79.899 Other long term (current) drug therapy
CPT/HCPCS: 24685; 73030; 73070; 73080; 80053; 85025; 85610; 85730; 96374; 96375; 99285; C1776; J0690; J1100; J1170; J2250; J2405; J2795; J3010

== ENCOUNTER → 2016-08-07 | Outpatient (REF) | payer OTHER ==
[~2016-08-07] MED LIST: DICL75TA PO; FLUO40CA PO; LYSI500C PO; SYNT137T7 PO; VICO5TAB16 PO; ZYLO300T4 PO
[2016-08-07 15:40] LABS: FREE T4 1.45 NG/DL (0.76-1.46)
== END ==
LOC: M LABDRAW1 11:33
PROVIDERS: ATTEND Family Medicine
DX: E03.9 Hypothyroidism, unspecified (principal)

== ENCOUNTER → 2017-07-16 | Outpatient (REF) | payer OTHER ==
[2017-07-16 11:57] LABS: BASO # 0.1 10^3/uL (0.0-0.2); BASO % 0.7 % (0.0-1.0); EOS # 0.2 10^3/uL (0.0-0.50); EOS % 2.1 % (0.0-3.0); HEMATOCRIT 47.4 % (42.0-52.0); HEMOGLOBIN 16.2 g/dl (14.0-18.0); IMMATURE GRANULOCYTE % 0.3 % (0-3.0); LYMPH # 1.3 10^3/uL (1.5-4.5); LYMPH % 12.9 % (24.0-44.0); MEAN CORPUSCULAR HEMOGLOBIN 30.3 pg (27.0-33.0); MEAN CORPUSCULAR HGB CONC 34.2 g/dl (32.0-36.5); MEAN CORPUSCULAR VOLUME 88.6 fl (80.0-96.0); MONO # 0.6 10^3/uL (0.0-0.8); MONO % 5.8 % (0.0-5.0); NEUTROPHILS # 7.6 10^3/uL (1.8-7.7); NEUTROPHILS % 78.2 % (36.0-66.0); PLATELET COUNT, AUTOMATED 213 10^3/uL (150-450); RED BLOOD COUNT 5.35 10^6/uL (4.30-6.10); WHITE BLOOD COUNT 9.8 10^3/uL (4.0-10.0)
[2017-07-16 12:27] LABS: ALBUMIN 3.8 GM/DL (3.2-5.2); ALBUMIN/GLOBULIN RATIO 1.23 (1.00-1.93); ALKALINE PHOSPHATASE 90 U/L (45-117); ALT/SGPT 26 U/L (12-78); ANION GAP 5 MEQ/L (8-16); AST/SGOT 15 U/L (7-37); BILIRUBIN,TOTAL 0.5 MG/DL (0.2-1.0); BLOOD UREA NITROGEN 25 MG/DL (7-18); CALCIUM LEVEL 8.8 MG/DL (8.5-10.1); CARBON DIOXIDE LEVEL 29 MEQ/L (21-32); CHLORIDE LEVEL 108 MEQ/L (98-107); CHOLESTEROL LEVEL 190 MG/DL (<200); CHOLESTEROL RISK RATIO 5.135 (<5); CREATININE FOR GFR 0.99 MG/DL (0.70-1.30); FREE T4 1.07 NG/DL (0.76-1.46); GLOMERULAR FILTRATION RATE > 60.0 (>60); GLUCOSE, FASTING 115 MG/DL (70-100); HDL CHOLESTEROL 37 MG/DL (>40); NON-HDL-C 153 MG/DL; POTASSIUM SERUM 4.6 MEQ/L (3.5-5.1); SODIUM LEVEL 142 MEQ/L (136-145); TOTAL PROTEIN 6.9 GM/DL (6.4-8.2); TRIGLYCERIDES LEVEL 110 MG/DL (<150)
== END ==
LOC: M LABDRAW1 08:39
DX: Z00.00 Encounter for general adult medical examination without abnormal findings (principal); E03.9 Hypothyroidism, unspecified

== ENCOUNTER → 2018-07-11 | Outpatient (REF) | payer OTHER ==
[~2018-07-11] MED LIST changes: -ZYLO300T4 PO; +ZYLO300T6 PO
[2018-07-11 15:12] LABS: ALBUMIN 3.8 GM/DL (3.2-5.2); ALT/SGPT 37 U/L (12-78); BILIRUBIN,TOTAL 0.7 MG/DL (0.2-1.0); BLOOD UREA NITROGEN 17 MG/DL (7-18); CARBON DIOXIDE LEVEL 30 MEQ/L (21-32); CHLORIDE LEVEL 107 MEQ/L (98-107); CHOLESTEROL LEVEL 188 MG/DL (<200); CHOLESTEROL RISK RATIO 5.081 (<5); CREATININE FOR GFR 0.97 MG/DL (0.70-1.30); FREE T4 1.18 NG/DL (0.76-1.46); GLOMERULAR FILTRATION RATE > 60.0 (>60); GLUCOSE, FASTING 100 MG/DL (70-100); HDL CHOLESTEROL 37 MG/DL (>40); LDL CHOLESTEROL 128 MG/DL (<100); NON-HDL-C 151 MG/DL; SODIUM LEVEL 142 MEQ/L (136-145); TRIGLYCERIDES LEVEL 115 MG/DL (<150)
== END ==
LOC: M LABDRAW1 13:35
PROVIDERS: ATTEND Family Medicine
DX: R03.0 Elevated blood-pressure reading, without diagnosis of hypertension (principal)

== ENCOUNTER → 2018-10-10 | Outpatient (REF) | payer OTHER ==
[~2018-10-10] MED LIST changes: -VICO5TAB16 PO; +VICO5TAB17 PO
[2018-10-10 13:05] LABS: FREE T4 1.16 NG/DL (0.76-1.46); THYROID STIMULATING HORMONE 9.75 uIU/ML (0.358-3.740)
== END ==
LOC: M LABDRAW1 11:57
PROVIDERS: ATTEND Family Medicine
DX: E03.9 Hypothyroidism, unspecified (principal)

== ENCOUNTER → 2018-12-20 | Outpatient (REF) | payer OTHER ==
[2018-12-20 13:47] LABS: FREE T4 1.43 NG/DL (0.76-1.46); THYROID STIMULATING HORMONE 2.63 uIU/ML (0.358-3.740)
== END ==
LOC: M LABDRAW1 12:43
PROVIDERS: ATTEND Family Medicine
DX: E03.9 Hypothyroidism, unspecified (principal)

== ENCOUNTER → 2020-03-08 | Outpatient (CLI) | payer OTHER ==
[2020-03-08 11:17] LABS: BASO # 0.1 10^3/uL (0.0-0.2); BASO % 0.7 % (0.0-1.0); EOS # 0.3 10^3/uL (0.0-0.5); EOS % 4.2 % (0.0-3.0); HEMATOCRIT 48.5 % (42.0-52.0); HEMOGLOBIN 16.4 g/dl (13.5-17.5); LYMPH # 1.4 10^3/uL (1.5-5.0); LYMPH % 20.3 % (24.0-44.0); MEAN CORPUSCULAR HGB CONC 33.8 g/dl (32.0-36.5); MEAN CORPUSCULAR VOLUME 91.7 fl (80.0-96.0); MONO # 0.5 10^3/uL (0.0-0.8); MONO % 7.3 % (0.0-5.0); NEUTROPHILS # 4.7 10^3/uL (1.5-8.5); NEUTROPHILS % 67.2 % (36.0-66.0); PLATELET COUNT, AUTOMATED 196 10^3/uL (150-450); RED BLOOD COUNT 5.29 10^6/uL (4.30-6.10); WHITE BLOOD COUNT 6.9 10^3/uL (4.0-10.0)
[2020-03-08 11:42] LABS: ALBUMIN 3.8 GM/DL (3.2-5.2); ALT/SGPT 34 U/L (12-78); BILIRUBIN,TOTAL 0.6 MG/DL (0.2-1.0); BLOOD UREA NITROGEN 20 MG/DL (7-18); CALCIUM LEVEL 9.1 MG/DL (8.5-10.1); CARBON DIOXIDE LEVEL 28 MEQ/L (21-32); CHLORIDE LEVEL 107 MEQ/L (98-107); CHOLESTEROL LEVEL 195 MG/DL (<200); CREATININE FOR GFR 0.97 MG/DL (0.70-1.30); GLOMERULAR FILTRATION RATE > 60.0 (>56); GLUCOSE, FASTING 123 MG/DL (70-100); HDL CHOLESTEROL 39 MG/DL (>40); LDL CHOLESTEROL 134 MG/DL (<100); NON-HDL-C 156 MG/DL; POTASSIUM SERUM 4.8 MEQ/L (3.5-5.1); SODIUM LEVEL 140 MEQ/L (136-145); THYROXINE (T4) 9.2 UG/DL (4.5-12.0); TOTAL PROTEIN 6.9 GM/DL (6.4-8.2); TRIGLYCERIDES LEVEL 111 MG/DL (<150); URIC ACID 5.3 MG/DL (3.5-7.2)
== END ==
LOC: M PLALAB 08:02
PROVIDERS: ATTEND Family Medicine
DX: Z00.00 Encounter for general adult medical examination without abnormal findings (principal); E03.9 Hypothyroidism, unspecified

== ENCOUNTER → 2020-03-24 | Outpatient (CLI) | payer OTHER ==
[2020-03-24 18:32] LABS: HEMOGLOBIN A1c 5.8 %
[2020-03-26 15:08] LABS: ANTINUCLEAR ANTIBODIES DIRECT Negative (Negative); Lyme Disease IgG/IgM Antibodie <0.91 ISR (0.00-0.90); Lyme Disease IgM Ab Quantitati <0.80 index (0.00-0.79)
== END ==
LOC: M PLALAB 11:24
PROVIDERS: ATTEND Family Medicine
DX: R73.01 Impaired fasting glucose (principal); M12.9 Arthropathy, unspecified

== ENCOUNTER → 2020-04-24 | Outpatient (CLI) | payer OTHER ==
[~2020-04-24] MED LIST changes: +INDO-16 PO; +LEVO150T7 PO; +VITMTA PO
== END ==
LOC: M LABSMTC 09:10
PROVIDERS: ATTEND Anesthesiology
DX: Z01.812 Encounter for preprocedural laboratory examination (principal); Z20.828 Contact with and (suspected) exposure to other viral communicable diseases

== ENCOUNTER 2020-04-28 09:02 | Day surgery (SDC) | payer OTHER ==
[~2020-04-28] VITALS: Ht 188 cm; Wt 108.3 kg
[~2020-04-28 09:02] MED LIST changes: +LIDOCAINE 2% 100MG/5ML SDV (FOR ANES.) As Ordered ONE; +NS 1,000 ML IV ONE; +propofoL 200 MG/20 ML VIAL As Ordered ONE
[2020-04-28] MEDS ORDERED: ONDANSETRON 4MG/2ML VIAL As Ordered ONE (09:50)
[2020-04-28] MEDS ORDERED: propofoL 200 MG/20 ML VIAL As Ordered ONE (09:59)
--- NOTE | 2020-04-28 10:14 | ROOR ---
Patient Name: Sergio Loza Procedure Date: 04/28/2020 9:48 AM Date of : 1970 Age: 50 Room: [facility] Gender: Male Note Status: Finalized Procedure: Colonoscopy Indications: High risk colon cancer surveillance: Personal history of colonic polyps Providers: DO Conrado Aguilar MD: Marybel Guerrero MD Requesting Provider: Medicines: Propofol per Anesthesia Complications: No immediate complications. Procedure: Pre-Anesthesia Assessment: - Prior to the procedure, a History and Physical was performed, and patient medications and allergies were reviewed. The patient is competent. The risks and benefits of the procedure and the sedation options and risks were discussed with the patient. All questions were answered and informed consent was obtained. Patient identification and proposed procedure were verified by the physician, the nurse, the tech ed/woodshop teacher and the gameroom technician in the endoscopy suite. Mental Status Examination: alert and oriented. Airway Examination: normal oropharyngeal airway and neck mobility. Respiratory Examination: clear to auscultation. CV Examination: normal. Prophylactic Antibiotics: The patient does not require prophylactic antibiotics. Prior Anticoagulants: The patient has taken no previous anticoagulant or antiplatelet agents. ASA Grade Assessment: II - A patient with mild systemic disease. After reviewing the risks and benefits, the patient was deemed in satisfactory condition to undergo the procedure. The anesthesia plan was to use monitored anesthesia care (MAC). Immediately prior to administration of medications, the patient was re-assessed for adequacy to receive sedatives. The heart rate, respiratory rate, oxygen saturations, blood pressure, adequacy of pulmonary ventilation, and response to care were monitored throughout the procedure. The physical status of the patient was re-assessed after the procedure. The Colonoscope was introduced through the anus and advanced to the cecum, identified by appendiceal orifice and ileocecal valve. The colonoscopy was performed without difficulty. The patient tolerated the procedure well. Findings: Multiple small and large-mouthed diverticula were found in the sigmoid colon. Estimated blood loss: none. A less than 5 mm polyp was found in the sigmoid colon. The polyp was pedunculated. The polyp was removed with a hot snare. Resection and retrieval were complete. Estimated blood loss: none. Impression: - Diverticulosis in the sigmoid colon. - One less than 5 mm polyp in the sigmoid colon, removed with a hot snare. Resected and retrieved. Recommendation: - Patient has a contact number available for emergencies. The signs and symptoms of potential delayed complications were discussed with the patient. Return to normal activities tomorrow. Written discharge instructions were provided to the patient. - Await pathology results. - Repeat colonoscopy in 5-10 years for surveillance based on pathology results. - Return to my office PRN. - Telephone my office for pathology results in 1 week. Procedure Code(s): --- Professional --- 19255, Colonoscopy, flexible; with removal of tumor(s), polyp(s), or other lesion(s) by snare technique Diagnosis Code(s): --- Professional --- Z86.010, Personal history of colonic polyps K63.5, Polyp of colon K57.30, Diverticulosis of large intestine without perforation or abscess without bleeding CPT copyright 2019 [employer]. All rights reserved. The codes documented in this report are preliminary and upon death surveys coder review may be revised to meet current compliance requirements. Randolph Lujan DO 04/28/2020 10:13:50 AM Electronically signed by Randolph Lujan DO Number of Addenda: 0 Note Initiated On: 04/28/2020 9:48 AM Estimated Blood Loss: Estimated blood loss was minimal.
[2020-04-28 10:35] VITALS: BP 136/88
== END 2020-04-28 10:36 | disposition home or self-care (01) ==
LOC: M OPP 09:02
PROVIDERS: ATTEND Surgery
DX: Z12.11 Encounter for screening for malignant neoplasm of colon (principal); Z86.010 Personal history of colon polyps; K63.5 Polyp of colon; K57.30 Diverticulosis of large intestine without perforation or abscess without bleeding; E03.9 Hypothyroidism, unspecified; G47.30 Sleep apnea, unspecified; Z88.0 Allergy status to penicillin; Z79.899 Other long term (current) drug therapy
CPT/HCPCS: 45385; 88305; J2405

== ENCOUNTER → 2020-09-07 | Outpatient (CLI) | payer OTHER ==
[~2020-09-07] MED LIST changes: -LIDOCAINE 2% 100MG/5ML SDV (FOR ANES.) As Ordered ONE; -NS 1,000 ML IV ONE; -propofoL 200 MG/20 ML VIAL As Ordered ONE
[2020-09-07 11:09] LABS: ALBUMIN 3.8 GM/DL (3.2-5.2); ALT/SGPT 49 U/L (12-78); BILIRUBIN,TOTAL 0.5 MG/DL (0.2-1.0); BLOOD UREA NITROGEN 20 MG/DL (7-18); CALCIUM LEVEL 9.4 MG/DL (8.5-10.1); CARBON DIOXIDE LEVEL 30 MEQ/L (21-32); CHLORIDE LEVEL 109 MEQ/L (98-107); CHOLESTEROL LEVEL 169 MG/DL (<200); CHOLESTEROL RISK RATIO 5.633 (<5); CREATININE FOR GFR 0.94 MG/DL (0.70-1.30); GLOMERULAR FILTRATION RATE > 60.0 (>56); GLUCOSE, FASTING 123 MG/DL (70-100); HDL CHOLESTEROL 30 MG/DL (>40); LDL CHOLESTEROL 115 MG/DL (<100); NON-HDL-C 139 MG/DL; SODIUM LEVEL 142 MEQ/L (136-145); TOTAL PROTEIN 6.8 GM/DL (6.4-8.2); TRIGLYCERIDES LEVEL 119 MG/DL (<150)
[2020-09-07 11:20] LABS: HEMOGLOBIN A1c 5.6 %
== END ==
LOC: M PLALAB 08:16
PROVIDERS: ATTEND Family Medicine
DX: R73.01 Impaired fasting glucose (principal); R03.0 Elevated blood-pressure reading, without diagnosis of hypertension

== ENCOUNTER → 2021-04-14 | Outpatient (CLI) | payer OTHER ==
[2021-04-14 13:27] LABS: HEMOGLOBIN A1c 5.4 %
[2021-04-14 13:50] LABS: FREE T4 1.36 NG/DL (0.76-1.46); THYROID STIMULATING HORMONE 4.5 uIU/ML (0.358-3.740)
== END ==
LOC: M PLALAB 11:25
PROVIDERS: ATTEND Family Medicine
DX: E03.9 Hypothyroidism, unspecified (principal); R73.01 Impaired fasting glucose

== ENCOUNTER → 2021-08-29 | Outpatient (CLI) | payer OTHER ==
[2021-08-29 14:19] LABS: FREE T4 1.18 NG/DL (0.76-1.46); THYROID STIMULATING HORMONE 0.825 uIU/ML (0.358-3.740)
== END ==
LOC: M PLALAB 11:28
PROVIDERS: ATTEND Family Medicine
DX: E03.9 Hypothyroidism, unspecified (principal)

== ENCOUNTER → 2022-01-26 | Outpatient (CLI) | payer OTHER ==
[2022-01-26 13:06] LABS: HEMATOCRIT 49.3 % (42.0-52.0); HEMOGLOBIN 16.5 g/dl (13.5-17.5); MEAN CORPUSCULAR HEMOGLOBIN 30.7 pg (27.0-33.0); MEAN CORPUSCULAR HGB CONC 33.5 g/dl (32.0-36.5); MEAN CORPUSCULAR VOLUME 91.6 fl (80.0-96.0); PLATELET COUNT, AUTOMATED 203 10^3/uL (150-450); RED BLOOD COUNT 5.38 10^6/uL (4.30-6.10); WHITE BLOOD COUNT 6.4 10^3/uL (4.0-10.0)
[2022-01-26 13:53] LABS: BLOOD UREA NITROGEN 20 MG/DL (7-18); CALCIUM LEVEL 9.9 MG/DL (8.5-10.1); CARBON DIOXIDE LEVEL 31 MEQ/L (21-32); CHLORIDE LEVEL 106 MEQ/L (98-107); CREATININE FOR GFR 1.06 MG/DL (0.70-1.30); GLOMERULAR FILTRATION RATE > 60.0 (>56); GLUCOSE, FASTING 120 MG/DL (70-100); POTASSIUM SERUM 5.2 MEQ/L (3.5-5.1); SODIUM LEVEL 140 MEQ/L (136-145)
== END ==
LOC: M PLALAB 09:44
PROVIDERS: ATTEND Internal Medicine Cardiovascular Disease
DX: I25.118 Atherosclerotic heart disease of native coronary artery with other forms of angina pectoris (principal)

== ENCOUNTER → 2023-02-16 | Outpatient (CLI) | payer OTHER ==
[2023-02-16 14:10] LABS: BASO % 0.5 % (0.0-1.0); EOS # 0.1 10^3/uL (0.0-0.5); EOS % 1.7 % (0.0-3.0); HEMATOCRIT 48.3 % (42.0-52.0); HEMOGLOBIN 16.6 g/dl (13.5-17.5); LYMPH # 1.9 10^3/uL (1.5-5.0); MEAN CORPUSCULAR HEMOGLOBIN 31.6 pg (27.0-33.0); MEAN CORPUSCULAR HGB CONC 34.4 g/dl (32.0-36.5); MEAN CORPUSCULAR VOLUME 91.8 fl (80.0-96.0); MONO # 0.7 10^3/uL (0.0-0.8); MONO % 8.6 % (2.0-8.0); NEUTROPHILS # 4.9 10^3/uL (1.5-8.5); NEUTROPHILS % 63.9 % (36.0-66.0); PLATELET COUNT, AUTOMATED 195 10^3/uL (150-450); RED BLOOD COUNT 5.26 10^6/uL (4.30-6.10); WHITE BLOOD COUNT 7.6 10^3/uL (4.0-10.0)
[2023-02-16 14:28] LABS: HEMOGLOBIN A1c 5.4 % (4.0-6.0); URIC ACID 6.6 MG/DL (3.7-9.2)
[2023-02-16 14:31] LABS: ALBUMIN 4.1 G/DL (3.2-5.2); ALKALINE PHOSPHATASE 73 U/L (46-116); ALT/SGPT 47 U/L (7.0-40); AST/SGOT 31 U/L (<34); BILIRUBIN,TOTAL 0.9 MG/DL (0.3-1.2); BLOOD UREA NITROGEN 23 MG/DL (9-23); CALCIUM LEVEL 9.6 MG/DL (8.5-10.1); CARBON DIOXIDE LEVEL 28 MMOL/L (20-31); CHLORIDE LEVEL 106 MMOL/L (98-107); CHOLESTEROL LEVEL 216 MG/DL (<200); CHOLESTEROL RISK RATIO 5.49 (<5); CREATININE FOR GFR 0.94 MG/DL (0.70-1.30); GLOMERULAR FILTRATION RATE > 60.0 (>56); GLUCOSE, FASTING 104 MG/DL (60-100); HDL CHOLESTEROL 39.3 MG/DL (>40); LDL CHOLESTEROL 158.9 MG/DL (<100); NON-HDL-C 176.7 MG/DL; POTASSIUM SERUM 4.6 MMOL/L (3.5-5.1); SODIUM LEVEL 141 MMOL/L (136-145); TOTAL PROTEIN 7.2 G/DL (5.7-8.2); TRIGLYCERIDES LEVEL 89 MG/DL (<150)
[2023-02-16 14:36] LABS: FREE T4 1.54 NG/DL (0.89-1.76); THYROID STIMULATING HORMONE 1.324 uIU/ML (0.55-4.78)
== END ==
LOC: M PLALAB 10:23
PROVIDERS: ATTEND Family Medicine
DX: Z00.00 Encounter for general adult medical examination without abnormal findings (principal); E03.9 Hypothyroidism, unspecified; R73.01 Impaired fasting glucose; M10.9 Gout, unspecified

== ENCOUNTER → 2024-01-07 | Outpatient (REF) | payer OTHER | LOC: M LAB REF 13:02 | PROVIDERS: ATTEND Internal Medicine | DX: M10.9 Gout, unspecified (principal) ==